=== PATIENT | female | born 1965 | race Two or more races ===

== ENCOUNTER 2021-06-12 11:45 | Inpatient (IN) | payer OTHER ==
[~2021-06-12] VITALS: Ht 160 cm; Wt 108.0 kg
[2021-06-12] MEDS ORDERED: ZYRT PO (14:01)
[2021-06-12] MEDS ORDERED: SINGULAIR10 MG PO (14:01)
[2021-06-12] MEDS ORDERED: AVAPRO150 MG PO (14:01)
[2021-06-13] MEDS ORDERED: QVAR REDIHALE10.6 G1 (14:28)
[2021-06-13] MEDS ORDERED: PROAIR HFA8.5 GM (14:28)
[2021-06-13] MEDS ORDERED: ZYRTEC10 M3 PO (14:29)
== END 2021-06-15 12:47 | disposition home or self-care (01) | DRG 743 ==
LOC: ADM 11:45 → OB/GYN 06-13 10:00 → O/R 06-13 10:00 → EDSTATUS 06-13 11:45 → SURG 06-13 11:45 → CIR.AMB 06-13 11:45 → SURG 06-13 16:30 → OB/GYN 06-13 19:43
PROVIDERS: ADMIT Specialist; ATTEND Specialist
PROC: 0UT74ZZ Resection of Bilateral Fallopian Tubes, Percutaneous Endoscopic Approach (ICD-10-PCS; 2021-06-13)
PROC: 0UT24ZZ Resection of Bilateral Ovaries, Percutaneous Endoscopic Approach (ICD-10-PCS; 2021-06-13)
PROC: 0UT94ZZ Resection of Uterus, Percutaneous Endoscopic Approach (ICD-10-PCS; principal; 2021-06-13 16:30)
DX: D25.1 Intramural leiomyoma of uterus (principal); N80.0 Endometriosis of uterus; Z20.822 Contact with and (suspected) exposure to COVID-19